=== PATIENT | male | born 1955 | race Caucasian/White ===

== ENCOUNTER 2016-04-28 08:35 | Outpatient (CLI) | payer OTHER ==
[2013-11-13 05:30] VITALS: BP 117/72
[2016-04-28 09:28] LABS: eGFR (African) > 60; eGFR (Non-African) > 60
== END 2016-04-28 08:36 ==
LOC: LAB 08:35
PROVIDERS: ATTEND Family Medicine
DX: E11.9 Type 2 diabetes mellitus without complications (principal); E29.1 Testicular hypofunction
CPT/HCPCS: 36415; 80053; 80061; 82043; 83036; 84403

== ENCOUNTER 2016-09-08 08:53 | Outpatient (CLI) | payer OTHER ==
[2013-11-13 05:30] VITALS: BP 117/72
[2016-09-08 09:51] LABS: eGFR (African) > 60; eGFR (Non-African) > 60
== END 2016-09-08 08:54 ==
LOC: LAB 08:53
PROVIDERS: ATTEND Family Medicine
DX: E11.9 Type 2 diabetes mellitus without complications (principal); R53.82 Chronic fatigue, unspecified; E79.0 Hyperuricemia without signs of inflammatory arthritis and tophaceous disease
CPT/HCPCS: 36415; 80053; 80061; 83036; 84443; 84550

== ENCOUNTER 2017-02-06 11:08 | Outpatient (CLI) | payer OTHER ==
[2013-11-13 05:30] VITALS: BP 117/72
[2017-02-06 12:04] LABS: eGFR (African) > 60; eGFR (Non-African) > 60
== END 2017-02-06 11:10 ==
LOC: LAB 11:08
PROVIDERS: ATTEND Family Medicine
DX: E78.00 Pure hypercholesterolemia, unspecified (principal); I10 Essential (primary) hypertension; E79.0 Hyperuricemia without signs of inflammatory arthritis and tophaceous disease
CPT/HCPCS: 36415; 80053; 83036; 84550

== ENCOUNTER 2017-09-07 08:11 | Outpatient (CLI) | payer OTHER ==
[2013-11-13 05:30] VITALS: BP 117/72
[2017-09-07 09:06] LABS: eGFR (African) > 60; eGFR (Non-African) > 60
== END 2017-09-07 08:17 ==
LOC: LAB 08:11
PROVIDERS: ATTEND Family Medicine
DX: E11.9 Type 2 diabetes mellitus without complications (principal); I10 Essential (primary) hypertension
CPT/HCPCS: 36415; 80053; 80061; 82043; 83036

== ENCOUNTER 2017-09-25 13:54 | Outpatient (CLI) | payer OTHER ==
[2013-11-13 05:30] VITALS: BP 117/72
[2017-09-25 16:06] LABS: BASOPHILS % 0.6 (0.0-1.5); EOSINOPHILS % 1.2 % (0.0-6.8); MEAN CORPUSCULAR HEMOGLOBIN 31.6 pg (28.0-34.0); MEAN CORPUSCULAR VOLUME 94.6 fl (80.0-100.0); MONOCYTES % 6.1 % (0.0-11.0); NEUTROPHILS # 3.2 # k/uL (1.4-7.7)
--- NOTE | 2017-09-26 13:51 | OP Clinic Progress Note ---
REASON FOR VISIT: This 61-year-old overweight male was seen with a history of nasal airway obstruction, stuffiness, and congestion. He does not really have severe ethmoid -type of headaches, but he does have a significant amount of pressure and discomfort. He has mouth breathing. The degree of snoring is a little bit difficult to evaluate. He is quite bothered by this. It gets a little better if he takes the antihistamines but only improves if he takes that with a decongestant in it. He has high blood pressure that is being treated with high blood pressure medications. He also has markedly hypertrophic inferior turbinate tissue. 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 I do not see gross purulence. I do not see gross polyps. Both ear canals are fairly clear. The right eardrum is somewhat moderately retracted but does not have fluid behind it and there is some mild erythema. The patient has symptoms consistent with Eustachian tube dysfunction on the right side. The left eardrum is simply clearer. The Martin is midline suggestive of not a significant disparity in hearing between the right and left ears. I described seeing an governor assembler hydraulic or having allergy testing, which can be done either by skin pricks with an governor assembler hydraulic or having the serum tested for allergies. If there are allergies enough to go forward with allergy desensitization, alternatively, he could have nasal surgery involving the septum or hypertrophic inferior turbinate tissues which seem to be some of the significant issues regarding the nasal congestion. He also has some pressure and discomfort overlying the ethmoid areas. It is not severe headaches. Pending on the clinical issues, those might be surgically addressed at the same time. Risks, problems, complications, postoperative care, and that snoring may not be improved secondary to the large neck size and being overweight. The patient understands this but is significantly bothered by the nasal congestion and stuffiness. He has tried Flonase and some nasal sprays but they do not seem to be working at all for him and he is still significantly bothered by this. PLAN: I described the surgery with no guarantee of improvement. The patient is interested in this. He will have a CT scan and I will visit with him in a week or 2 depending upon his schedule. cc: Dr. Greg MONAHAN
== END 2017-09-25 14:00 ==
LOC: ENT 13:54
PROVIDERS: ATTEND Otolaryngology
DX: J32.9 Chronic sinusitis, unspecified (principal)
CPT/HCPCS: 36415; 85025; 99213

== ENCOUNTER 2017-09-30 07:42 | Outpatient (CLI) | payer OTHER ==
[2013-11-13 05:30] VITALS: BP 117/72
--- NOTE | 2017-09-30 08:59 | Diagnostic Imaging Report ---
OR[place]O HARTLEY [facility] [address] [facility] [address] [id number] Report Submission Date: Sep 30, 2017 8:31:01 AM CDT Patient Study Name: SHAHLA LIEBERMAN Date: Sep 30, 2017 7:59:45 AM CDT Modality Type: CT\SR Gender: M Description: CT MAXILLOFACIAL W/O D : 59 Institution: [facility] Physician: ORLANDO HARTLEY CT sinuses without contrast History: Sinusitis Technique: Axial images were obtained through the paranasal sinuses. Sagittal and coronal reconstructions were performed. Findings: There is mild mucosal thickening inferiorly of the right maxillary sinus. Otherwise, the paranasal sinuses are clear. The ostiomeatal complexes are patent. Nasal passages are clear. A single BB projects within the soft tissues at the midline forehead. No additional soft tissue abnormalities are noted. Impression: Mild mucosal thickening inferiorly of the right maxillary sinus. Otherwise, unremarkable paranasal sinuses. Single BB within the soft tissues at the midline forehead. Electronically signed on Sep 30, 2017 8:31:01 AM CDT by: Ninfa MONAHAN
== END 2017-09-30 07:43 ==
LOC: RAD 07:42
PROVIDERS: ATTEND Otolaryngology
DX: J32.0 Chronic maxillary sinusitis (principal)
CPT/HCPCS: 70486

== ENCOUNTER 2017-10-09 14:14 | Outpatient (CLI) | payer OTHER ==
[2013-11-13 05:30] VITALS: BP 117/72
--- NOTE | 2017-10-10 17:17 | OP Clinic Progress Note ---
REASON FOR VISIT: Reji is seen in follow up on his complaints of sinonasal congestion, stuffiness , postnasal drainage, and intermittent cough. I reviewed his CT scan. I agree with the radiologist's opinion that it is fairly clear without any type of consolidation or major abnormality. There is a very small amount of thickening in the maxillary sinus but that is not at all consequential relative to his symptoms. Using a fiberoptic rhinoscope, there was no evident mass. There is no purulence or no polyps. There is some diffuse inflammatory changes. Reviewing the patient's respiratory environment history, he works around a significant amount of fertilizer, dirt, dust, chemical fumes, and oils. PLAN: Overall, most of his symptoms, I believe, are related to rhinitis. In addition to taking the Claritin, I have asked him to take Singulair in addition for a month and see if that combination makes some difference. In addition, I emphasized using some saline nasal sprays in a variety of different ways to mix it up but I have recommended at least starting with having [address] or [place], or generic saline nasal spray bottles and when he is around almost any dirt, dust, and irritants to spritz both nostrils all the way through and try to keep the nostrils as clean as possible washing out the respiratory irritants would be the next best choice as opposed to avoiding them. The patient feels that in his line of work or daily activities, that would be an impossibility. Again, I would tend not to recommend surgery. I do not think the patient could be significantly benefited at this point. cc: Dr. Greg MONAHAN
== END 2017-10-09 14:15 ==
LOC: ENT 14:14
PROVIDERS: ATTEND Otolaryngology
DX: J30.9 Allergic rhinitis, unspecified (principal)
CPT/HCPCS: 31231; 99213

== ENCOUNTER 2017-11-21 08:29 | Emergency (ER) | payer OTHER ==
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
[2017-11-21 10:01] VITALS: BP 87/48
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
--- NOTE | 2017-11-21 19:35 | Diagnostic Imaging Report ---
[address] [facility] [address] [facility] [address] [address] Report Submission Date: Nov 21, 2017 9:41:35 AM CDT Patient Study Name: SHAHLA LIEBERMAN Date: Nov 21, 2017 8:54:48 AM CDT Modality Type: DX Gender: M Description: SPINE : 59 Institution: [facility] Physician: [address] Lumbar spine History: Low back pain AP and lateral projections of the lumbar spine were obtained which demonstrate multilevel anterior and lateral marginal osteophytes consistent with diffuse idiopathic skeletal hyperostosis. There is extensive facet arthropathy without spondylolisthesis or evidence spondylolysis. There is severe disc space narrowing at L5/S1 and moderate disc space narrowing at all other levels of lumbar spine. Impression: Findings consistent with diffuse idiopathic skeletal hyperostosis. Extensive degenerative findings throughout the lumbar spine. Electronically signed on Nov 21, 2017 9:41:35 AM CDT by: Ninfa MONAHAN
== END 2017-11-21 10:00 | disposition home or self-care (01) ==
LOC: ED 08:29
DX: M48.19 Ankylosing hyperostosis [Forestier], multiple sites in spine (principal); V89.2XXA Person injured in unspecified motor-vehicle accident, traffic, initial encounter; X58.XXXA Exposure to other specified factors, initial encounter; Y92.9 Unspecified place or not applicable; Y93.9 Activity, unspecified; Y99.9 Unspecified external cause status; M54.5 Low back pain
CPT/HCPCS: 72040; 72100; 99283

== ENCOUNTER 2018-01-27 09:09 | Outpatient (CLI) | payer OTHER ==
[2018-01-27 10:02] LABS: eGFR (Non-African) > 60
== END 2018-01-27 09:11 ==
LOC: LAB 09:09
PROVIDERS: ATTEND Family Medicine
DX: E11.9 Type 2 diabetes mellitus without complications (principal); I10 Essential (primary) hypertension
CPT/HCPCS: 36415; 80053; 83036